=== PATIENT | female | born 1955 | race Hispanic/Latino ===

== ENCOUNTER 2017-10-21 19:25 | Emergency (ER) | payer BC ==
[~2017-10-21] VITALS: Ht 165.1 cm; Wt 95.0 kg
[~2017-10-21 19:25] MED LIST: ACTOS15 MG OR; ACTOS15 MG PO; ACYCLOVIR800 MG PO; CALCIUM600 M1 PO; DIFLUCAN150 MG PO; FOLIC ACID1 MG PO; GABAPENTIN300 MG PO; LEVOTHYROXIN50 MC1 PO; METFORMIN HCL1000 MG PO; METFORMIN500 MG PO; METHOTREXATE2.5 MG PO; MOBIC7.5 M1 PO; MOBIC7.5 MG OR; NAPROSYN500 MG OR; OMNICEF300 MG OR; PRILOSEC20 MG PO; RHEUMATREX2.5 M1 PO; ULTRAM50 M1 PO; ZOFRAN ODT4 MG PO
[2017-10-21 20:23] LABS: URINE BILIRUBIN - DIPSTICK NEGATIVE (NEGATIVE); URINE BLOOD DIPSTICK MODERATE (NEGATIVE); URINE COLOR YELLOW; URINE GLUCOSE - DIPSTICK NEGATIVE (NEGATIVE); URINE KETONE NEGATIVE (NEGATIVE); URINE LEUK ESTERASE NEGATIVE (NEGATIVE); URINE NITRITE - DIPSTICK NEGATIVE (Negative); URINE PROTEIN - DIPSTICK NEGATIVE (NEG-TRACE); URINE UROBILINOGEN - DIPSTICK 0.2 E.U./dL (0.2)
[2017-10-21 20:30] LABS: URINE CLARITY CLEAR
[2017-10-21 20:31] LABS: URINE SQUAMOUS EPITHELIAL CELL FEW EPI/hpf (0-FEW)
[2017-10-21 20:32] LABS: HEMATOCRIT 39.4 % (37.0-47.0); HEMOGLOBIN 12.8 g/dl (12.0-16.0); IMMATURE GRANULOCYTES 0.4 % (0.0-1.0); MEAN CORPUSCULAR HGB 27.9 pG CALC (26.0-32.0); MEAN CORPUSCULAR HGB CONC 32.5 g/L CALC (32.0-36.0); PLATELET COUNT 176 thou/uL (130-400); RED BLOOD COUNT 4.58 mill/uL (4.20-5.60); RED CELL DISTRI WIDTH 12.9 % (11.5-15.5)
[2017-10-21 20:51] LABS: BAND 6 % (0-8); MANUAL DIFFERENTIAL YES
[2017-10-21 20:58] LABS: INFLUENZA A POSITIVE (NONE DETECT); INFLUENZA B NONE DETECTED (NONE DETECT)
[2017-10-21 21:11] LABS: ALBUMIN 4.2 g/dL (3.2-5.0); ALKALINE PHOSPHATASE 95 u/l (38-126); ANION GAP 15 (6-22 (CALC)); BILIRUBIN, TOTAL 0.2 mg/dL (0.0-1.4); BUN 15 mg/dL (7-17); BUN/CREATININE RATIO 21 (12-20 (CALC)); CALCIUM 8.9 mg/dL (8.4-10.2); CARBON DIOXIDE 27 mmol/l (22-30); CHLORIDE 103 mmol/l (95-108); CREATININE 0.7 mg/dL (0.5-1.0); GFR > 60 ML/MIN (>=60 (CALC)); GFR FOR AFR.AMER. > 60 ML/MIN (>=60 (CALC)); GLUCOSE 176 mg/dL (65-105); POTASSIUM 3.7 mmol/l (3.5-5.1); SGOT/AST 39 u/l (14-36); SGPT/ALT 33 u/l (9-52); SODIUM 142 mmol/l (137-146)
[2017-10-21 21:39] VITALS: BP 168/81
[2017-10-21] MEDS ORDERED: TAM75CAP PO (21:39)
== END 2017-10-21 21:45 | disposition home or self-care (01) | DRG 195 ==
LOC: ED 19:25
PROVIDERS: Emergency Medicine
DX: J10.1 Influenza due to other identified influenza virus with other respiratory manifestations (principal); D70.9 Neutropenia, unspecified; R31.9 Hematuria, unspecified; E11.40 Type 2 diabetes mellitus with diabetic neuropathy, unspecified; K21.9 Gastro-esophageal reflux disease without esophagitis; M06.9 Rheumatoid arthritis, unspecified; E03.9 Hypothyroidism, unspecified

== ENCOUNTER 2020-01-14 14:05 | Emergency (ER) | payer BC ==
[~2020-01-14 14:05] MED LIST changes: +TAM75CAP PO
[2020-01-15] MEDS ORDERED: AMOXICILLIN/CL875 MG PO (09:01)
== END 2020-01-14 15:02 | disposition left against medical advice (07) | DRG 951 ==
LOC: ED 14:05 → LWOBS 15:01
DX: Z53.21 Procedure and treatment not carried out due to patient leaving prior to being seen by health care provider (principal)

== ENCOUNTER 2020-01-15 | Emergency (ER) | payer SELFPAY ==
[2020-01-15] MEDS ORDERED: AMOXICILLIN/CL875 MG PO (09:01)
== END 2020-01-15 09:50 | disposition home or self-care (01) | DRG 153 ==
DX: J02.9 Acute pharyngitis, unspecified (principal); E11.9 Type 2 diabetes mellitus without complications; I10 Essential (primary) hypertension; Z79.84 Long term (current) use of oral hypoglycemic drugs

== ENCOUNTER 2023-02-25 12:59 | Emergency (ER) | payer MEDICARE ==
[~2023-02-25] VITALS: Ht 157.5 cm; Wt 89.3 kg
[~2023-02-25 12:59] MED LIST changes: +AMOXICILLIN/CL875 MG PO; +ASPIRIN81 MG PO; +KEFLEX500 MG PO; +LOSARTAN POTASS50 MG PO
[2023-02-25] MEDS ORDERED: MOTRIN800 MG PO (14:38)
[2023-02-25] MEDS ORDERED: AMOX/K CLAV875 M1 PO (14:38)
[2023-02-25 14:40] VITALS: BP 166/86
== END 2023-02-25 14:45 | disposition home or self-care (01) ==
LOC: ED 12:59
DX: K08.89 Other specified disorders of teeth and supporting structures (principal); I10 Essential (primary) hypertension; E11.9 Type 2 diabetes mellitus without complications; Z79.84 Long term (current) use of oral hypoglycemic drugs